=== PATIENT | male | born 1980 | race Caucasian/White ===

== ENCOUNTER → 2017-08-24 | Outpatient (REF) | payer OTHER | LOC: M LAB REF 12:18 | PROVIDERS: ATTEND Nurse Practitioner Family | DX: L81.8 Other specified disorders of pigmentation (principal) ==

== ENCOUNTER → 2020-12-03 | Outpatient (CLI) | payer SELFPAY ==
[~2020-12-03] MED LIST: ACET325C5 PO; MOTR200T44 PO; ONDA4TAB6 PO
== END ==
LOC: M LABSMTC 11:06
PROVIDERS: ATTEND Pediatrics
DX: Z20.822 Contact with and (suspected) exposure to COVID-19 (principal)

== ENCOUNTER 2020-12-12 10:45 | Emergency (ER) | payer OTHER ==
[~2020-12-12] VITALS: Ht 180.3 cm; Wt 150.4 kg
[2020-12-12 10:46] VITALS: BP 145/74
[2020-12-12] MEDS ORDERED: MOTR200T44 PO (10:56)
--- OUTSIDE RECORDS SUMMARY | 2020-12-12 10:56 | CCD | Continuity of Care Document ---
Author Author Nisha SALAMANCA DAIRY BAR MANAGER Organization Unknown Address [address] [facility] [address] [place] [address] Phone [phone] Care Team Providers Care Furniture Finisher Apprentice Name Role Phone Rosemarie Ventura ANP AUTM [phone] Problems Active Problems Provider Date Hypothyroidism JOÃO Newton Onset: 11/27/2020 Vitamin D deficiency Annie Salamanca DAIRY BAR MANAGER Onset: 11/27/2020 Hyperlipidemia Annie Salamanca DAIRY BAR MANAGER Onset: 11/27/2020 Gastroesophageal reflux disease Annie Salamanca DAIRY BAR MANAGER Onset: 0 11/27/2020 Morbid obesity Annie Salamanca DAIRY BAR MANAGER Onset: 11/27/2020 Social History Type Date Description Comments Sex Unknown ETOH Use Drinks 2 Alcoholic Beverages Per Week Tobacco Use Start: Unknown Patient has never smoked Allergies, Adverse Reactions, Alerts Active Allergies Reaction Severity Comments Date Bee Sting Anaphylaxis Age 7 Stung By Several Bees 08/24/2017 Succinylcholine MALIGNANT HYPOTHERMIA Mother Positive Hereditary 08/24/2017 Inactive Allergies NKDA 08/24/2017 Medications Active Medications SIG Qnty Indications Ordering Provide r Date Multivitamins Capsules 1 by mouth every day Rosemarie Ventura FNP 08/24/2017 Medications Administered in Office Medication SIG Qnty Indications Ordering Provider Date Immunization Adminstration,1 Vaccine/Tox oid Injection Rosemarie Ventura FNP 11/09/20 18 Immunizations CPT Code Status Date Vaccine Lot # [id number] Given 11/09/2018 Influenza Virus Vaccine, Quadrivalent (Cciiv4), Derived From 0 Given 08/24/2017 Influenza Vaccin e Quadrivalent Preser/Antibiotic Free Im Use [id number] Vital Signs Date Vital Result Comment 11/27/2020 2:51pm BP Systolic 122 mmHg RT Arm BP Diastolic 76 mmHg RT Arm Heart Rate 80 /min Height 69.75 inches 5'9.75" Weight 335.00 lb BMI (Body Mass Index) 48.4 kg/m2 11/25/2019 2:54pm BP Systolic 130 mmHg BP Diastolic 84 mmHg Height 69.75 inches 5'9.75" Weight 321.00 lb BMI (Body Mass Index) 46.4 kg/m2 Results Test Acquired Date Facility Test Result H/L Range Note Coronavirus 2019 ([facility]) 12/03/2020 [facility] [address], [place] [id number] [phone] Coronavirus 2019 ([facility]) <SEE NOTE> 1 Basic Metabolic Panel 11/27/2020 [facility] haris carvajal Apprentice Electrician: [place] [address] [phone] Glucose 95 mg/dL 74 - 99 2 BUN 17 mg/dL 7 - 18 Creatinine 0.9 mg/dL 0.6 - 1.3 Sodium 138 mEq/L 136 - 145 Potassium 4.1 mEq/L 3.5 - 5.1 Chloride 102 mEq/L 98 - 107 Carbon Dioxide 29 mEq/L 21 - 32 Calcium 9.0 mg/dL 8.5 - 10.1 GFR >= 60 mL/min >60 GFR >= 60 mL/min >60 3 Lipid Profile 11/27/2020 [facility] Apprentice Electrician: [place] [address] [phone] Cholesterol 247 mg/dL High 131 - 200 Triglycerides 196 mg/dL High 30 - 150 HDL Cholesterol 44 mg/dL 35 - 60 LDL (Calculated) 164 CALC High 50 - 159 Laboratory test finding 11/27/2020 [facility] haris gonzales Apprentice Electrician: [place] [address] [phone] Thyroid Stimulating Hormone 1.43 uIU/mL 0.3 6 - 3.74 Laboratory test finding 11/27/2020 [facility] haris gonzales Apprentice Electrician: [place] [address] [phone] Vitamin D 25-Hydroxy 22.2 Low 24.0 - 80.0 4 1 Test: COVID-19 Nasal/Naspharynx Result: NOT DETECTED Reference Units: Not detected Note: Please consider re-collection of a new specimen, if clinically indicated. Note: The COVID-19 assay is under Emergency Use Authorization(EUA) by the U.S. Food and Drug Administration. [facility] is designated as a high complexity laboratory by the Clinical Laboratory Improvement Amendments of 1988(CLIA) and is qualified to perform this test. ASSAY INFORMATION: Real Time RT-PCR 2 100-125 mg/dL PRE-DIABET ES/FASTING >126 mg/dL DIABETES/FASTING 3 CHRONIC KIDNEY DISEASE STAGI NG PER NKF STAGE I & II GFR >= 60 NORMAL TO MILDLY DECREASED STAGE III GFR 30-59 MODERATELY DECREASED STAGE IV GFR 15-29 SEVERELY DECREASED STAGE V GFR <15 VERY LITTLE GFR LEFT ESRD GFR <15 ON BOBBIN PAINTER 4 This test was performed hermann thomas [employer] IP Vitamin D immunoassay kit. Values obtained with different assay methods should not be used interchangeably. Procedures Description No Information Available Medical Devices Description No Information Available Encounters Type Date Location Provider Dx Diagnosis Office Visit 11/27/2020 3:00p [facility] P.CVladimir montoya, DAIRY BAR MANAGER Z00.00 Encntr for general adult medical exam w/ o abnormal findings E03.9 Hypothyroidism, unspecified E55.9 Vitamin D deficiency, unspec ified E78.5 Hyperlipidemia, unspecified K21.9 Gastro-esophageal reflux dis ease without esophagitis E66.01 Morbid (severe) obesity due to excess calories Z68.42 Body mass index [BMI] 45.0-4 9.9, adult Z13.89 Encounter for screening for other disorder Assessments Date Code Description Provider 11/27/2020 Z00.00 Encounter for genera l adult medical examination without abnormal findings VERENA NewtonP 11/27/2020 E03.9 Hypothyroidism, unspecified Honey jerrysandra Salamanca, [facility] 11/27/2020 E55.9 Vitamin D deficiency, unspecifie d Annie Salamanca, [facility] 11/27/2020 E78.5 Hyperlipidemia, unspecified Honeyshayla blackburnsandra Salamanca, [facility] 11/27/2020 K21.9 Gastro-esophageal reflux disease without esophagitis Annie Salamanca, [facility] 11/27/2020 E66.01 Morbid (severe) obesity due to e xcess calories Annie Salamanca, [facility] 11/27/2020 Z68.42 Body mass index [BMI] 45.0-49.9, adult Annie Salamanca, [facility] 11/27/2020 Z13.89 Encounter for screening for othe r disorder JOÃO Newton Plan of Treatment Future Appointment(s):* 12/17/2021 3:00 pm - JOÃO Newton at [facility] 11/27/2020 - JOÃO Newton* Z00.00 Encounter for general adult medical examination without abnormal findings* Comments:* Tentatively schedule 1 yr follow up, although anticipating elevated lipids and will require 3 mo. lab follow up, potentially 6 mo. OC as well. Discussed with pt. who is in agreement. * E03.9 Hypothyroidism, unspecified* Comments:* TSH is pending. No current supplementation at this point. * E55.9 Vitamin D deficiency, unspecified* Comments:* Not currently supplemented; but will check vit d level today. * E78.5 Hyperlipidemia, unspecified* Comments:* Lipids are pending, significantly increased last November but not repeated due to COVID. Dicussed statin therapy should LDL >190, patient is agreeable if necessary. Counseled on indication as well as potential side effects. Chol/Trig dietary guidelines are provided to patient today. Diet and exercise are discussed and reinforced; specifically encouraged low fat and Mediterranean style diet. Weight loss is encouraged. * K21.9 Gastro-esophageal reflux disease without esophagitis* Comments:* Controlled with diet, no current pharmacotherapy. * E66.01 Morbid (severe) obesity due to excess calories* Comments:* Weight loss would be favorable. Implement dietary modifications (low fat, low carb, high fiber, lean proteins, decreasing portion sizes, small frequent high protein snacks, and making substitutions in refined sugars), regular daily exercise of at least 30 minutes three days weekly is encouraged. * Z68.42 Body mass index [BMI] 45.0-49.9, adult * Z13.89 Encounter for screening for other disorder * All * Comments:* Tetanus refused, flu shot refused. EKG 11/28/13. Caffeine 2 per day. Exercise 20-30 minutes per day of cycling. Tentatively scheduled for one year f/u, however discussed may change pending lab results. Encouraged balanced diet, 4-5 servings of fresh fruits and vegetables daily. Recommended at least 30 minutes of exercise daily and eight 8 oz. glasses of water daily.Testicular self exams encouraged monthly.RTC PRN for acute illness.COVID precautions are discussed and social distancing/mask use/ frequent hand washing and sanitizing are encouraged. Functional Status Description No Information Available Mental Status Description No Information Available Referrals Refer to Reason for Referral Status Appt Date Gianluca Waddell M.D. [facility] CONSULT FOR VASECTOMY Patient Notified 01/06/2021 [facility] [address], [place] [address] [phone]
[2020-12-12] MEDS ORDERED: ACET325C5 PO (10:57)
--- OUTSIDE RECORDS SUMMARY | 2020-12-12 10:57 | CCD | Continuity of Care Document ---
Author Author Nisha HART [facility] Organization Unknown Address [address] [facility] [address] [place] [address] Phone [phone] Care Team Providers Care Gasoline Locomotive Crane Operator Name Role Phone Rosemarie Ventura ANP AUTM [phone] Problems Description No Information Available Social History Type Date Description Comments Sex [...] Provider Date Immunization Adminstration,1 Vaccine/Tox oid Injection Rosmearie Ventura FNP 11/09/20 18 Immunizations CPT Code Status Date Vaccine Lot # [id number] Given 11/09/2018 Influenza Virus Vaccine, Quadrivalent (Cciiv4), Derived From 7 Given 08/24/2017 Influenza Vaccin e Quadrivalent Preser/Antibiotic Free Im Use [id number] Vital Signs Date Vital Result Comment 11/27/2020 2:51pm BP Systolic 142 mmHg RT Arm BP Diastolic 90 mmHg RT Arm Heart Rate 80 /min Height 69.75 inches 5'9.75" Weight 335.00 lb BMI (Body Mass Index) 48.4 kg/m2 11/25/2019 2:54pm BP Systolic 130 mmHg BP Diastolic 84 mmHg Height 69.75 inches 5'9.75" Weight 321.00 lb BMI (Body Mass Index) 46.4 kg/m2 Results Test Acquired Date Facility Test Result H/L Range Note Laboratory test finding 11/27/2020 [facility] Swing Grinder: ASHLEIGH Blas [address] [phone] TSH <pending> Laboratory test finding 11/27/2020 [facility] Swing Grinder: ASHLEIGH Blas [address] [phone] Vitamin D 25-Hydroxy <pending> Procedures Description No Information Available Medical Devices Description No Information Available Encounters Description No Information Available Assessments Description No Information Available Plan of Treatment No Information Available Functional Status Description No Information Available Mental Status Description No Information Available Referrals Description No Information Available
--- OUTSIDE RECORDS SUMMARY | 2020-12-12 10:57 | CCD ---
Author Author [facility] Organization [facility] Address Unknown Phone Unavailable Care Team Providers Care Wholesale Manager Name Role Phone Cheikh, Annie LIFE SKILLS WORKER Unavailable Unavailable Cheikh, Annie LIFE SKILLS WORKER Unavailable Unavailable Cheikh, Annie LIFE SKILLS WORKER Unavailable Unavailable Cheikh, Annie LIFE SKILLS WORKER Unavailable Unavailable Cheikh, Annie LIFE SKILLS WORKER Unavailable Unavailable Cheikh, Annie LIFE SKILLS WORKER Unavailable Unavailable Cheikh, Annie LIFE SKILLS WORKER Unavailable Unavailable Cheikh, Annie LIFE SKILLS WORKER Unavailable Unavailable Cheikh, Annie LIFE SKILLS WORKER Unavailable Unavailable Cheikh, Annie LIFE SKILLS WORKER Unavailable Unavailable Cheikh, Annie LIFE SKILLS WORKER Unavailable Unavailable Cheikh, Annie LIFE SKILLS WORKER Unavailable Unavailable Cheikh, Annie LIFE SKILLS WORKER Unavailable Unavailable Cheikh, Annie LIFE SKILLS WORKER Unavailable Unavailable Cheikh, Annie LIFE SKILLS WORKER Unavailable Unavailable Cheikh, Annie LIFE SKILLS WORKER Unavailable Unavailable Cheikh, Annie LIFE SKILLS WORKER Unavailable Unavailable Cheikh, Annie LIFE SKILLS WORKER Unavailable Unavailable Cheikh, Annie LIFE SKILLS WORKER Unavailable Unavailable Cheikh, Annie LIFE SKILLS WORKER Unavailable Unavailable Cheikh, Annie LIFE SKILLS WORKER Unavailable Unavailable Cheikh, Annie LIFE SKILLS WORKER Unavailable Unavailable Cheikh, Annie LIFE SKILLS WORKER Unavailable Unavailable Cheikh, Annie LIFE SKILLS WORKER Unavailable Unavailable Cheikh, Annie LIFE SKILLS WORKER Unavailable Unavailable Cheikh, Annie LIFE SKILLS WORKER Unavailable Unavailable Cheikh, Annie LIFE SKILLS WORKER Unavailable Unavailable Re-disclosure Warning The records that you are about to access may contain information from federally-assisted alcohol or drug abuse programs. If such information is present, then the following federally mandated warning applies: This information has been disclosed to you from records protected by federal confidentiality rules (42 CFR part 2). The federal rules prohibit you from making any further disclosure of this information unless further disclosure is expressly permitted by the written consent of the person to whom it pertains or as otherwise permitted by 42 CFR part 2. A general authorization for the release of medical or other information is NOT sufficient for this purpose. The Federal rules restrict any use of the information to criminally investigate or prosecute any alcohol or drug abuse patient.The records that you are about to access may contain highly sensitive health information, the redisclosure of which is protected by Article 27-F of the [facility] Public Health law. If you continue you may have access to information: Regarding HIV / AIDS; Provided by facilities licensed or operated by the [facility] Office of Mental Health; or Provided by the [facility] Office for People With Developmental Disabilities. If such information is present, then the following [facility] mandated warning applies: This information has been disclosed to you from confidential records which are protected by state law. State law prohibits you from making any further disclosure of this information without the specific written consent of the person to whom it pertains, or as otherwise permitted by law. Any unauthorized further disclosure in violation of state law may result in a fine or usp sentence or both. A general authorization for the release of medical or other information is NOT sufficient authorization for further disc losure. Family History Family Member Name Family Member Gender Family Member Status Date o f Status Description Data Source(s) Unknown Male Problem [facility] ([facility]) Encounters Encounter Providers Location Date Indications Data Source(s ) Outpatient Attender: Annie Duncan 02:00:00 PM EST [facility] ([facility] ) Medications Medication Brand Name Start Date Product Form Dose Route Admi nistrative Instructions Pharmacy Instructions Status Indications Reaction Description Data Source(s) 60 mcg (15 mcg x 4)/0.5 mL 08/17/2020 12:00:00 AM EDT syring e 0 INJECT DIRECTED INJECT DIRECTED SOLD: 08/17/2020 [employer] . UNIT 08/17/2020 12:00:00 AM EDT Injectable 1 DIRECTED DIRECTED SOLD: 08/17/2020 [facility] Insurance Providers Payer name Policy type / Coverage type Policy ID Covered democrat ID Covered democrat's relationship to trivedi Policy Trivedi Plan Information [employer]OM[employer] [id number] SELF PAY ONLY [id number] SP [id number] [employer]/Umr (Old) Medigap Part B [id number] Family Dependent [id number] Umr (New [place]) Commercial [id number] Family Dependent [id number] [employer] (Old) Medigap Part B [id number] Family Dependent [id number] Umr [place] Ppo Commercial [id number] Family Dependent [id number] [employer] Ppo Commercial [id number] Family Dependent [id number] POMCO U [id number] Spouse [id number] POMCO U [id number] Spouse [id number] POMCO U [id number] Spouse [id number] POMCO O [id number] U [id number] SELFPAY 5 UNAVAILABLE 1 UNAVAILA BLE [employer]OMCO 2 [id number] 2 [id number] Problems, Conditions, and Diagnoses Code Display Name Description Problem Type Effective Dates Data Source(s) 703789910 Morbid obesity Morbid obesity Problem 11/27/2020 12:00: 00 AM EST [facility] ([facility]) [id number] Gastroesophageal reflux disease Gastroesophageal reflux disease Problem 11/27/2020 12:00:00 AM EST [facility] ([facility]) [id number] Hyperlipidemia Hyperlipidemia Problem 11/27/2020 12:00: 00 AM EST [facility] ([facility]) [id number] Vitamin D deficiency Vitamin D deficiency Problem 11/27/2020 12:00:00 AM EST [facility] ([facility]) [id number] Hypothyroidism Hypothyroidism Problem 11/27/2020 12:00: 00 AM EST [facility] ([facility]) Results ID Date Data Source [id number] 12/04/2020 12:00:00 AM EST [facility] Name Value Range Interpretation Code Description Data Indira rce(s) Supporting Document(s) SARS-CoV-2 (COVID-19) RNA [Presence] in Respiratory specimen by SHEBA with probe detection Not Detected [facility] This lab was ordered by [facility] and reported by [employer] ID Date Data Source [id number] 12/03/2020 11:00:00 AM EST [facility] Name Value Range Interpretation Code Description Data Indira rce(s) Supporting Document(s) Laboratory test finding (navigational concept) Laboratory test result [facility] ([facility]) Test: COVID-19 Nasal/Naspharynx Result: NOT DETECTED Reference Units: Not detected Note: Please consider re-collection of a new specimen, if clinically indicated. Note: The COVID-19 assay is under Emergency Use Authorization(EUA) by the U.S. Food and Drug Administration. [facility] is designated as a high complexity laboratory by the Clinical Laboratory Improvement Amendments of 1988(CLIA) and is qualified to perform this test. ASSAY INFORMATION: Real Time RT-PCR ID Date Data Source [id number] 11/27/2020 02:47:00 PM EST [facility] Name Value Range Interpretation Code Description Data Indira rce(s) Supporting Document(s) Calcidiol [Mass/volume] in Serum or Plasma 22.2 24.0-80.0 [facility] This test was performed using [employer] P Vitamin D immunoassay kit. Values obtained with different assay methods should not be used interchangeably. ID Date Data Source [id number] 11/27/2020 02:47:00 PM EST [facility] Name Value Range Interpretation Code Description Data Indira rce(s) Supporting Document(s) Thyrotropin [Units/volume] in Serum or Plasma by Detec tion limit <= 0.05 mIU/L 1.43 uIU/mL 0.36-3.74 [facility] ([facility] ) ID Date Data Source [id number] 11/27/2020 02:47:00 PM EST [facility] ([facility]) Name Value Range Interpretation Code Description Data Indira rce(s) Supporting Document(s) Triglyceride [Mass/volume] in Serum or Plasma 196 mg/dL 30-150 [facility] ([facility]) Cholesterol [Mass/volume] in Serum or Plasma 247 mg/dL 131-200 [facility] ([facility]) Cholesterol in LDL [Mass/volume] in Serum or Plasma by calcu lation 164 CALC 50-159 [facility] ([facility]) Cholesterol in HDL [Mass/volume] in Serum or Plasma 44 mg/dL 35-60 [facility] ([facility]) ID Date Data Source [id number] 11/27/2020 02:47:00 PM EST [facility] ([facility]) Name Value Range Interpretation Code Description Data Indira rce(s) Supporting Document(s) Glucose [Mass/volume] in Serum or Plasma 95 mg/dL 74-99 [facility] ([facility]) 100-125 mg/dL PRE-DIABETES/FASTING >126 mg/dL DIABETES/FASTING Sodium [Moles/volume] in Serum or Plasma 138 meq/L 136-145 [facility] ([facility]) Urea nitrogen [Mass/volume] in Serum or Plasma 17 mg/dL 7-18 [facility] ([facility]) Creatinine 0.9 mg/dL 0.6-1.3 [facility] Chloride [Moles/volume] in Serum or Plasma 102 meq/L 98-107 [facility] ([facility]) Potassium [Moles/volume] in Serum or Plasma 4.1 meq/L 3.5-5.1 [facility] ([facility]) Calcium [Mass/volume] in Serum or Plasma 9.0 mg/dL 8.5-10.1 [facility] ([facility]) Carbon dioxide, total [Moles/volume] in Serum or Plasma 29 meq/L 21 -32 [facility] ([facility]) Glomerular filtration rate/1.73 sq M pre dicted among non-blacks [Volume Rate/Area] in Serum or Plasma by Creatinine-based formula (MDRD) Laboratory test result [facility] ([facility] ) Glomerular filtration rate/1.73 sq M pre dicted among blacks [Volume Rate/Area] in Serum or Plasma by Creatinine-based formula (MDRD) Laboratory [facility] <content>CHRONIC KIDNEY DISEASE STAGING PER NKF</content>
<content></content>
<content>STAGE I & II GFR >= 60 NORMAL TO MILDLY DECREASED</content>
<content>STAGE III GFR 30-59 MODERATELY DECREASED</content>
<content>STAGE IV GFR 15-29 SEVERELY DECREASED</content>
<content>STAGE V GFR <15 VERY LITTLE GFR LEFT</content>
<content>ESRD GFR <15 ON DAMAGE PREVENTION COORDINATOR</content>
<content></content> ID Date Data Source [id number] 11/26/2019 08:44:00 AM EST [facility] ([facility]) Name Value Range Interpretation Code Description Data Indira rce(s) Supporting Document(s) Calcidiol [Mass/volume] in Serum or Plasma <pending> [facility]) ID Date Data Source [id number] 11/26/2019 08:44:00 AM EST [facility] ([facility]) Name Value Range Interpretation Code Description Data Indira rce(s) Supporting Document(s) Thyrotropin [Units/volume] in Serum or Plasma by Detec tion limit <= 0.05 mIU/L 1.54 uIU/mL 0.36-3.74 [facility] ID Date Data Source [id number] 11/26/2019 08:44:00 AM EST [facility] ([facility]) Name Value Range Interpretation Code Description Data Indira rce(s) Supporting Document(s) Cholesterol [Mass/volume] in Serum or Plasma 257 mg/dL 131-200 [facility] ([facility]) Cholesterol in LDL [Mass/volume] in Serum or Plasma by calcu lation 199 CALC 50-159 [facility] ([facility]) Triglyceride [Mass/volume] in Serum or Plasma 123 mg/dL 30-150 [facility] ([facility]) Cholesterol in HDL [Mass/volume] in Serum or Plasma 33 mg/dL 35-60 [facility] ([facility]) ID Date Data Source [id number] 11/26/2019 08:44:00 AM EST [facility] ([facility]) Name Value Range Interpretation Code Description Data Indira rce(s) Supporting Document(s) Glucose [Mass/volume] in Serum or Plasma 107 mg/dL 74-99 [facility] ([facility]) 100-125 mg/dL PRE-DIABETES/FASTING >126 mg/dL DIABETES/FASTING Urea nitrogen [Mass/volume] in Serum or Plasma 13 mg/dL 7-18 [facility] ([facility]) Creatinine 1.1 mg/dL 0.6-1.3 [facility] Chloride [Moles/volume] in Serum or Plasma 100 meq/L 98-107 [facility] ([facility]) Potassium [Moles/volume] in Serum or Plasma 4.5 meq/L 3.5-5.1 [facility] ([facility]) Sodium [Moles/volume] in Serum or Plasma 138 meq/L 136-145 [facility] ([facility]) Carbon dioxide, total [Moles/volume] in Serum or Plasma 25 meq/L 21 -32 [facility] ([facility]) Calcium [Mass/volume] in Serum or Plasma 9.2 mg/dL 8.5-10.1 [facility] ([facility]) Glomerular filtration rate/1.73 sq M pre dicted among non-blacks [Volume Rate/Area] in Serum or Plasma by Creatinine-based formula (MDRD) >= 60 mL/min [facility] ([facility]) Glomerular filtration rate/1.73 sq M pre dicted among blacks [Volume Rate/Area] in Serum or Plasma by Creatinine-based formula (MDRD) >= 60 mL/min [facility] ([facility]) <content>CHRONIC KIDNEY DISEASE STAGING PER NKF</content>
<content></content>
<content>STAGE I & II GFR >= 60 NORMAL TO MILDLY DECREASED</content>
<content>STAGE III GFR 30-59 MODERATELY DECREASED</content>
<content>STAGE IV GFR 15-29 SEVERELY DECREASED</content>
<content>STAGE V GFR <15 VERY LITTLE GFR LEFT</content>
<content>ESRD GFR <15 ON DAMAGE PREVENTION COORDINATOR</content>
<content></content> ID Date Data Source [id number] 11/26/2019 08:44:00 AM EST [facility] ([facility]) Name Value Range Interpretation Code Description Data Indira rce(s) Supporting Document(s) Erythrocytes [#/volume] in Blood by Automated count 5.42 x10*6/UL 4.2 0-6.30 [facility] ([facility]) Leukocytes [#/volume] in Blood by Automated count 6.6 x10*3/UL 4.1-10 .9 [facility] ([facility]) Hemoglobin [Mass/volume] in Blood 15.6 g/dL 12.0-18.0 [facility] ([facility]) Hematocrit [Volume Fraction] of Blood by Automated count 46.1 % 3 7.0-51.0 [facility] ([facility]) MCHC 34.0 g/dL 31.0-38.0 [facility] MCV 84.9 fL 80.0-97.0 [facility] MCH 28.8 pg 26.0-32.0 [facility] [facility]) Erythrocyte distribution width [Ratio] by Automated count 12.4 % 11.6-13.7 [facility] ([facility]) Platelets [#/volume] in Blood by Automated count 227 x10*3/UL 140-440 [facility] ([facility]) Lymph % 31.4 % 10.0-58.5 [facility] [facility]) Mid % 8.1 % 1.7-9.3 [facility]) MPV 8.0 FL 7.8-11.0 [facility] Neut % 60.5 % 37.0-92.0 [facility] Mid # 0.6 x10*3/UL 0.1-0.6 [facility] ([facility]) Lymph # 2.0 x10*3/UL 0.6-4.1 [facility] ([facility]) Neut # 4.0 x10*3/UL 2.0-7.8 [facility] ([facility]) Procedure Vital Signs ID Date Data Source UNK Name Value Range Interpretation Code Description Data Source(s) Body mass index (BMI) [Ratio] 48.4 kg/m2 48.4 k g/m2 [facility] ([facility]) Body weight 335.00 [lb_av] 335.00 [lb_av] [facility] ([facility]) Body height 69.75 [in_i] 69.75 [in_i] [facility] ([facility]) 5'9.75" Heart rate 80 /min 80 /min [facility] ([facility]) Diastolic blood pressure 76 mm[Hg] 76 mm[Hg] [facility] ([facility]) RT Arm Systolic blood pressure 122 mm[Hg] 122 mm[Hg] [facility] ([facility]) RT Arm Body mass index (BMI) [Ratio] 46.4 kg/m2 46.4 k g/m2 [facility] ([facility]) Body weight 321.00 [lb_av] 321.00 [lb_av] [facility] ([facility]) Body height 69.75 [in_i] 69.75 [in_i] [facility] ([facility]) 5'9.75" Diastolic blood pressure 84 mm[Hg] 84 mm[Hg] [facility] ([facility]) Systolic blood pressure 130 mm[Hg] 130 mm[Hg] [facility]
--- OUTSIDE RECORDS SUMMARY | 2020-12-12 10:57 | CCD | Continuity of Care Document ---
Author Author Nisha SALAMANCA [employer]TER AWAY Organization Unknown Address [address] [facility] [address] [place] [address] Phone [phone] Care Team Providers Care Loans Consultant Name Role Phone Rosemarie Ventura ANP AUTM [phone] Problems Active Problems Provider Date Hypothyroidism JOÃO Newton Onset: 11/27/2020 Vitamin D deficiency Annie Salamanca [employer] Onset: 11/27/2020 Hyperlipidemia Anine Salamanca [employer] Onset: 11/27/2020 Gastroesophageal reflux disease Annie Salamanca [employer] Onset: 0 11/27/2020 Morbid obesity Annie Salamanca [employer] Onset: 11/27/2020 Social History Type Date Description [...] CPT Code Status Date Vaccine Lot # [id number] Given 11/09/2018 Influenza Virus Vaccine, Quadrivalent (Cciiv4), Derived From 8 Given 08/24/2017 Influenza Vaccin e Quadrivalent Preser/Antibiotic Free Im Use [id number] Vital Signs Date Vital Result Comment 11/27/2020 [...] Date Facility Test Result H/L Range Note Basic Metabolic Panel 11/27/2020 [facility] Maintenance Mechanic Engine: [place] [id number] [phone] Glucose 95 mg/dL 74 - 99 1 BUN 17 mg/dL 7 - 18 Creatinine 0.9 mg/dL 0.6 - 1.3 Sodium 138 mEq/L 136 - 145 Potassium 4.1 mEq/L 3.5 - 5.1 Chloride 102 mEq/L 98 - 107 Carbon Dioxide 29 mEq/L 21 - 32 Calcium 9.0 mg/dL 8.5 - 10.1 GFR >= 60 mL/min >60 GFR >= 60 mL/min >60 2 Lipid Profile 11/27/2020 [facility] Maintenance Mechanic Engine: ASHLE[place] Blas [id number] [phone] Cholesterol 247 mg/dL High 131 - 200 Triglycerides 196 mg/dL High 30 - 150 HDL Cholesterol 44 mg/dL 35 - 60 LDL (Calculated) 164 CALC High 50 - 159 Laboratory test finding 11/27/2020 [facility] Maintenance Mechanic Engine: [place] Bl[place] [id number] [phone] Thyroid Stimulating Hormone 1.43 uIU/mL 0.3 6 - 3.74 Laboratory test finding 11/27/2020 [facility] Maintenance Mechanic Engine: [place] Bl[place] [address] [phone] Vitamin D 25-Hydroxy 22.2 Low 24.0 - 80.0 3 1 100-125 mg/dL PRE-DIABET ES/FASTING >126 mg/dL DIABETES/FASTING 2 CHRONIC KIDNEY DISEASE STAGI NG PER NKF STAGE I & II GFR >= 60 NORMAL TO MILDLY DECREASED STAGE III GFR 30-59 MODERATELY DECREASED STAGE IV GFR 15-29 SEVERELY DECREASED STAGE V GFR <15 VERY LITTLE GFR LEFT ESRD GFR <15 ON BILINGUAL OFFICE ASSISTANT 3 This test was performed [employer] Vitamin D immunoassay kit. Values obtained with different assay methods should not be used interchangeably. Procedures Description No Information Available Medical Devices Description No Information Available Encounters Type Date Location Provider Dx Diagnosis Office Visit 11/27/2020 3:00p [facility] VERENA AlcantarP Z00.00 Encntr for general adult medical exam [...] l adult medical examination without abnormal findings Annie Salamanca, [facility] 11/27/2020 E03.9 Hypothyroidism, unspecified Honey jerrysandra Salamanca, [facility] 11/27/2020 E55.9 Vitamin D deficiency, unspecifie d Annie Salamanca, [facility] 11/27/2020 E78.5 Hyperlipidemia, unspecified Honey jerry Cheikh, [facility] 11/27/2020 K21.9 Gastro-esophageal reflux disease without esophagitis Annie Salamanca, [facility] 11/27/2020 E66.01 Morbid (severe) obesity due to e xcess calories Annie Salamanca, [facility] 11/27/2020 Z68.42 Body mass index [BMI] 45.0-49.9, adult Annie Salamanca [facility] 11/27/2020 Z13.89 Encounter for screening for othe r disorder JOÃO Newton Plan of Treatment Future Appointment(s):* 12/17/2021 3:00 pm - JOÃO Newton at [facility] 11/27/2020 - JOÃO Newton* Z00.00 Encounter [...] Referral Status Appt Date Gianluca Waddell M.D. PARKER CONSULT FOR [facility]CTOMY [facility] [place] [address], [place] [address] [phone]
--- OUTSIDE RECORDS SUMMARY | 2020-12-12 10:57 | CCD | Continuity of Care Document ---
Author Author Nisha SALAMANCA INTELLIGENT SYSTEMS ENGINEER Organization Unknown Address [address] [facility] [address] [place] [address] Phone [phone] Care Team Providers Care Weekend Caregiver Name Role Phone Rosemarie Ventura ANP AUTM [phone] Problems Active Problems Provider Date Hypothyroidism JOÃO Newton Onset: 11/27/2020 Vitamin D deficiency Annie Salamanca INTELLIGENT SYSTEMS ENGINEER Onset: 11/27/2020 Hyperlipidemia Annie Salamanca INTELLIGENT SYSTEMS ENGINEER Onset: 11/27/2020 Gastroesophageal reflux disease Annie Salamanca INTELLIGENT SYSTEMS ENGINEER Onset: 0 11/27/2020 Morbid obesity Annie Salamanca INTELLIGENT SYSTEMS ENGINEER Onset: 11/27/2020 Social History Type Date Description [...] CPT Code Status Date Vaccine Lot # [id number] Given 11/09/2018 Influenza Virus Vaccine, Quadrivalent (Cciiv4), Derived From 0 Given 08/24/2017 Influenza Vaccin e Quadrivalent Preser/Antibiotic Free Im Use [id number] Vital Signs Date Vital Result Comment 11/27/2020 [...] H/L Range Note Basic Metabolic Panel 11/27/2020 [facility] Cat Sitter: [place] [id number] [phone] Glucose 95 mg/dL 74 - 99 1 [...] 60 mL/min >60 2 Lipid Profile 11/27/2020 [facility] Cat Sitter: [place]SHLE[place] Blas [id number] [phone] Cholesterol 247 mg/dL High 131 - 200 Triglycerides 196 mg/dL High 30 - 150 HDL Cholesterol 44 mg/dL 35 - 60 LDL (Calculated) 164 CALC High 50 - 159 Laboratory test finding 11/27/2020 [facility] Cat Sitter: [place]LE[place] Bl[place] [address] [phone] Thyroid Stimulating Hormone 1.43 uIU/mL 0.3 6 - 3.74 Laboratory test finding 11/27/2020 [facility] Cat Sitter: [place]LE[place] lBas [address] [phone] Vitamin D 25-Hydroxy 22.2 Low 24.0 - 80.0 3 1 100-125 mg/dL PRE-DIABET ES/FASTING >126 mg/dL DIABETES/FASTING 2 CHRONIC KIDNEY DISEASE STAGI NG PER NKF STAGE I & II GFR >= 60 NORMAL TO MILDLY DECREASED STAGE III GFR 30-59 MODERATELY DECREASED STAGE IV GFR 15-29 SEVERELY DECREASED STAGE V GFR <15 VERY LITTLE GFR LEFT ESRD GFR <15 ON OUTSIDE SALESMAN 3 This test was performed [employer] Vitamin D immunoassay kit. Values obtained with different assay methods should not be used interchangeably. Procedures Description No Information Available Medical Devices Description No Information Available Encounters Description No Information Available Assessments Date Code Description Provider 11/27/2020 Z00.00 Encounter for genera l adult medical examination without abnormal findings VERENA NewtonP 11/27/2020 E03.9 Hypothyroidism, unspecified Honey Salamanca, [facility] 11/27/2020 E55.9 Vitamin D deficiency, unspecifie d Annie Salamanca, [facility] 11/27/2020 E78.5 Hyperlipidemia, unspecified Honey Salamanca, [facility] 11/27/2020 K21.9 Gastro-esophageal reflux disease without esophagitis Annie Salamanca [facility] 11/27/2020 E66.01 Morbid (severe) obesity due to e xcess calories Annie Salamanca [facility] 11/27/2020 Z68.42 Body mass index [BMI] 45.0-49.9, adult JOÃO Newton Plan of Treatment Future Appointment(s):* 12/17/2021 3:00 pm - JOÃO Newton at [facility] 11/27/2020 - JOÃO Newton* Z00.00 [...] Body mass index [BMI] 45.0-49.9, adult * All * Comments:* Tetanus refused, flu [...] Description No Information Available Referrals Refer to Dr Reason for Referral Status Appt Date Gianluca Waddell M.D. STABLE MANAGER CONSULT FOR VASECTOMY [facility] [address] , [facility] [place] [address] [phone]
--- OUTSIDE RECORDS SUMMARY | 2020-12-12 10:57 | CCD | Continuity of Care Document ---
Author Author Nisha SALAMANCA WEBFOCUS DEVELOPER Organization Unknown Address [address] [facility] [address] [place] [address] Phone [phone] Care Team Providers Care Grain Loader Name Role Phone Rosemarie Ventura ANP AUTM [phone] Problems Active Problems Provider Date Hypothyroidism JOÃO Newton Onset: 11/27/2020 Vitamin D deficiency Annie Salamanca WEBFOCUS DEVELOPER Onset: 11/27/2020 Hyperlipidemia Annie Salamanca WEBFOCUS DEVELOPER Onset: 11/27/2020 Gastroesophageal reflux disease Annie Salamanca WEBFOCUS DEVELOPER Onset: 0 11/27/2020 Morbid obesity Annie Salamanca [employer]BFOCUS DEVELOPER Onset: 11/27/2020 Social History Type Date Description [...] CPT Code Status Date Vaccine Lot # [id number] Given 11/09/2018 Influenza Virus Vaccine, Quadrivalent ([id number]), Derived From 8 Given 08/24/2017 Influenza Vaccin e Quadrivalent Preser/Antibiotic Free Im Use [id number] Vital Signs Date Vital Result Comment 11/27/2020 [...] H/L Range Note Basic Metabolic Panel 11/27/2020 [facility] Figure Refinisher And Repairer: ASHLEIGH Blas [address] [phone] Glucose 95 mg/dL 74 - 99 1 [...] 60 mL/min >60 2 Lipid Profile 11/27/2020 [facility] Figure Refinisher And Repairer: ASHLEIGH Blas [address] [phone] Cholesterol 247 mg/dL High 131 - 200 Triglycerides 196 mg/dL High 30 - 150 HDL Cholesterol 44 mg/dL 35 - 60 LDL (Calculated) 164 CALC High 50 - 159 Laboratory test finding 11/27/2020 [facility] Figure Refinisher And Repairer: ASHLEIGH Blas [address] [phone] Thyroid Stimulating Hormone 1.43 uIU/mL 0.3 6 - 3.74 Laboratory test finding 11/27/2020 [facility] Figure Refinisher And Repairer: ASHLEIGH Blas [address] [phone] Vitamin D 25-Hydroxy <pending> 1 100-125 mg/dL PRE-DIABET ES/FASTING >126 mg/dL DIABETES/FASTING 2 CHRONIC KIDNEY DISEASE STAGI NG PER NKF STAGE I & II GFR >= 60 NORMAL TO MILDLY DECREASED STAGE III GFR 30-59 MODERATELY DECREASED STAGE IV GFR 15-29 SEVERELY DECREASED STAGE V GFR <15 VERY LITTLE GFR LEFT ESRD GFR <15 ON INSTRUCTOR OF NURSING Procedures Description No Information Available Medical Devices Description No Information Available Encounters Description No Information Available Assessments Date Code Description Provider 11/27/2020 Z00.00 Encounter for genera l adult medical examination without abnormal findings JOÃO Newton 11/27/2020 E03.9 Hypothyroidism, unspecified Honey Salamanca, [facility] 11/27/2020 E55.9 Vitamin D deficiency, unspecifie d Annie Salamanca, [facility] 11/27/2020 E78.5 Hyperlipidemia, unspecified Honey Salamanca, [facility] 11/27/2020 K21.9 Gastro-esophageal reflux disease without esophagitis Annie Salamanca [facility] 11/27/2020 E66.01 Morbid (severe) obesity due to e xcess calories Annie Salamanca, [facility] 11/27/2020 Z68.42 Body mass index [BMI] 45.0-49.9, adult JOÃO Newton Plan of Treatment Future Appointment(s):* 12/17/2021 3:00 pm - JOÃO Newton at [facility] 11/27/2020 - JOÃO Newton* Z00.00 [...]
--- OUTSIDE RECORDS SUMMARY | 2020-12-12 11:30 | CCD ---
Author Author [facility] Organization [facility] Address Unknown Phone Unavailable Care Team Providers Care Field Representatives Director Name Role Phone Cheikh, Annie NURSES AIDE Unavailable Unavailable Cheikh, Annie NURSES AIDE Unavailable Unavailable Cheikh, Annie NURSES AIDE Unavailable Unavailable Cheikh, Annie NURSES AIDE Unavailable Unavailable Cheikh, Annie NURSES AIDE Unavailable Unavailable Cheikh, Annie NURSES AIDE Unavailable Unavailable Cheikh, Annie NURSES AIDE Unavailable Unavailable Cheikh, Annie NURSES AIDE Unavailable Unavailable Cheikh, Annie NURSES AIDE Unavailable Unavailable Cheikh, Annie NURSES AIDE Unavailable Unavailable Cheikh, Annie NURSES AIDE Unavailable Unavailable Cheikh, Annie NURSES AIDE Unavailable Unavailable Cheikh, Annie NURSES AIDE Unavailable Unavailable Cheikh, Annie NURSES AIDE Unavailable Unavailable Cheikh, Annie NURSES AIDE Unavailable Unavailable Cheikh, Annie NURSES AIDE Unavailable Unavailable Cheikh, Annie NURSES AIDE Unavailable Unavailable Cheikh, Annie NURSES AIDE Unavailable Unavailable Cheikh, Annie NURSES AIDE Unavailable Unavailable Cheikh, Annie NURSES AIDE Unavailable Unavailable Cheikh, Annie NURSES AIDE Unavailable Unavailable Cheikh, Annie NURSES AIDE Unavailable Unavailable Cheikh, Annie NURSES AIDE Unavailable Unavailable Cheikh, Annie NURSES AIDE Unavailable Unavailable Cheikh, Annie NURSES AIDE Unavailable Unavailable Cheikh, Annie NURSES AIDE Unavailable Unavailable Cheikh, Annie NURSES AIDE Unavailable Unavailable Re-disclosure Warning The records that [...] is protected by Article 27-F of the [facility] Public Health law. If you continue you may have access to information: Regarding HIV / AIDS; Provided by facilities licensed or operated by the [facility] Office of Mental Health; or Provided by the [facility] Office for People With Developmental Disabilities. If such information is present, then the following [facility] mandated warning applies: This information has [...] law may result in a fine or detention sentence or both. A general authorization for the release of medical or other information is NOT sufficient authorization for further disc losure. Family History Family Member Name Family Member Gender Family Member Status Date o f Status Description Data Source(s) Unknown Male Problem [facility] ([facility]) Encounters Encounter Providers Location Date Indications Data Source(s ) Outpatient Attender: Annie Duncan 02:00:00 PM EST [facility] ([facility] ) Medications Medication Brand Name Start Date Product Form Dose Route Admi nistrative Instructions Pharmacy Instructions Status Indications Reaction Description Data Source(s) 60 mcg (15 mcg x 4)/0.5 mL 08/17/2020 12:00:00 AM EDT syring e 0 INJECT DIRECTED INJECT DIRECTED SOLD: 08/17/2020 [facility] . UNIT 08/17/2020 12:00:00 AM EDT Injectable 1 DIRECTED DIRECTED SOLD: 08/17/2020 [facility] Insurance Providers Payer name Policy type / Coverage type Policy ID Covered alliance party ID Covered alliance party's relationship to trivedi Policy Trivedi Plan Information [facility] [id number] WI2 [id number] POMCO [id number] [place]2 [id number] SELF PAY ONLY [id number] SP [id number] [place]/Umr (Old) Medigap Part B [id number] Family Dependent [id number] Umr (New [place]) Commercial [id number] Family Dependent [id number] [place]Umr (Old) Medigap Part B [id number] Family Dependent [id number] Umr [place] Ppo Commercial [id number] Family Dependent [id number] [place] Ppo Commercial [id number] Family Dependent [id number] POMCO U [id number] Spouse [id number] POMCO U [id number] Spouse [id number] POMCO U [id number] Spouse [id number] POMCO O [id number] U [id number] SELFPAY 5 UNAVAILABLE 1 UNAVAILA BLE POMCO 2 [id number] 2 [id number] Problems, Conditions, and Diagnoses Code Display Name Description Problem Type Effective Dates Data Source(s) 390558607 Morbid obesity Morbid obesity Problem 11/27/2020 12:00: 00 AM EST [facility] ([facility]) [id number] Gastroesophageal reflux disease Gastroesophageal reflux disease Problem 11/27/2020 12:00:00 AM EST [facility] ([facility]) [id number] Hyperlipidemia Hyperlipidemia Problem 11/27/2020 12:00: 00 AM EST [facility] ([facility]) [id number] Vitamin D deficiency Vitamin D deficiency Problem 11/27/2020 12:00:00 AM EST [facility] ([facility]) [id number] Hypothyroidism Hypothyroidism Problem 11/27/2020 12:00: 00 AM EST [facility] ([facility]) Results ID Date Data Source [id number] 12/04/2020 12:00:00 AM EST [facility] Name Value Range Interpretation Code Description Data Indira rce(s) Supporting Document(s) SARS-CoV-2 (COVID-19) RNA [Presence] in Respiratory specimen by SHEBA with probe detection Not Detected [facility] This lab was ordered by [facility] and reported by [employer] ID Date Data Source [id number] 12/03/2020 11:00:00 AM EST [facility] Name Value Range Interpretation Code Description Data Indira rce(s) Supporting Document(s) Laboratory test finding (navigational concept) Laboratory test result [facility] ([facility]) Test: COVID-19 Nasal/Naspharynx Result: NOT DETECTED Reference Units: Not detected Note: Please consider re-collection of a new specimen, if clinically indicated. Note: The COVID-19 assay is under Emergency Use Authorization(EUA) by the U.S. Food and Drug Administration. [employer] is designated as a high complexity laboratory by the Clinical Laboratory Improvement Amendments of 1988(CLIA) and is qualified to perform this test. ASSAY INFORMATION: Real Time RT-PCR ID Date Data Source [id number] 11/27/2020 02:47:00 PM EST [facility] ([facility]) Name Value Range Interpretation Code Description Data Nidira rce(s) Supporting Document(s) Calcidiol [Mass/volume] in Serum or Plasma 22.2 24.0-80.0 [facility] ([facility]) This test was performed using [employer] I P Vitamin D immunoassay kit. Values obtained with different assay methods should not be used interchangeably. ID Date Data Source [id number] 11/27/2020 02:47:00 PM EST [facility] Name Value Range Interpretation Code Description Data Indira rce(s) Supporting Document(s) Thyrotropin [Units/volume] in Serum or Plasma by Detec tion limit <= 0.05 mIU/L 1.43 uIU/mL 0.36-3.74 [facility] ([facility] ) ID Date Data Source [id number] 11/27/2020 02:47:00 PM EST [facility] ([facility]) Name Value Range Interpretation Code Description Data Indira rce(s) Supporting Document(s) Triglyceride [Mass/volume] in Serum or Plasma 196 mg/dL 30-150 [facility] ([facility]) Cholesterol [Mass/volume] in Serum or Plasma 247 mg/dL 131-200 [facility] ([facility]) Cholesterol in LDL [Mass/volume] in Serum or Plasma by calcu lation 164 CALC 50-159 [facility] ([facility]) Cholesterol in HDL [Mass/volume] in Serum or Plasma 44 mg/dL 35-60 [facility] ([facility]) ID Date Data Source [id number] 11/27/2020 02:47:00 PM EST [facility] Name Value Range Interpretation Code Description Data Indira rce(s) Supporting Document(s) Glucose [Mass/volume] in Serum or Plasma 95 mg/dL 74-99 [facility] ([facility]) 100-125 mg/dL PRE-DIABETES/FASTING >126 mg/dL DIABETES/FASTING Sodium [Moles/volume] in Serum or Plasma 138 meq/L 136-145 [facility] ([facility]) Urea nitrogen [Mass/volume] in Serum or Plasma 17 mg/dL 7-18 [facility] ([facility]) Creatinine 0.9 mg/dL 0.6-1.3 [facility] Chloride [Moles/volume] in Serum or Plasma 102 meq/L 98-107 [facility] ([facility]) Potassium [Moles/volume] in Serum or Plasma 4.1 meq/L 3.5-5.1 [facility] ([facility]) Calcium [Mass/volume] in Serum or Plasma 9.0 mg/dL 8.5-10.1 [facility] ([facility]) Carbon dioxide, total [Moles/volume] in Serum or Plasma 29 meq/L 21 -32 [facility] ([facility]) Glomerular filtration rate/1.73 sq M pre dicted among non-blacks [Volume Rate/Area] in Serum or Plasma by Creatinine-based formula (MDRD) Laboratory test result [facility] Glomerular filtration rate/1.73 sq M pre dicted among blacks [Volume Rate/Area] in Serum or Plasma by Creatinine-based formula (MDRD) Laboratory test result [facility] <content>CHRONIC KIDNEY DISEASE STAGING PER NKF</content>
<content></content>
<content>STAGE I & II GFR >= 60 NORMAL TO MILDLY DECREASED</content>
<content>STAGE III GFR 30-59 MODERATELY DECREASED</content>
<content>STAGE IV GFR 15-29 SEVERELY DECREASED</content>
<content>STAGE V GFR <15 VERY LITTLE GFR LEFT</content>
<content>ESRD GFR <15 ON CLINICAL SCIENCE LIAISON</content>
<content></content> ID Date Data Source [id number] 11/26/2019 08:44:00 AM EST [facility] ([facility]) Name Value Range Interpretation Code Description Data Indira rce(s) Supporting Document(s) Calcidiol [Mass/volume] in Serum or Plasma <pending> [facility] ID Date Data Source [id number] 11/26/2019 08:44:00 AM EST [facility] ([facility]) Name Value Range Interpretation Code Description Data Indira rce(s) Supporting Document(s) Thyrotropin [Units/volume] in Serum or Plasma by Detec tion limit <= 0.05 mIU/L 1.54 uIU/mL 0.36-3.74 [facility] ID Date Data Source [id number] 11/26/2019 08:44:00 AM EST [facility] Name Value Range Interpretation Code Description Data Indira rce(s) Supporting Document(s) Cholesterol [Mass/volume] in Serum or Plasma 257 mg/dL 131-200 [facility] ([facility]) Cholesterol in LDL [Mass/volume] in Serum or Plasma by calcu lation 199 CALC 50-159 [facility] ([facility]) Triglyceride [Mass/volume] in Serum or Plasma 123 mg/dL 30-150 [facility] ([facility]) Cholesterol in HDL [Mass/volume] in Serum or Plasma 33 mg/dL 35-60 [facility] ([facility]) ID Date Data Source [id number] 11/26/2019 08:44:00 AM EST [facility] ([facility]) Name Value Range Interpretation Code Description Data Indira rce(s) Supporting Document(s) Glucose [Mass/volume] in Serum or Plasma 107 mg/dL 74-99 [facility] ([facility]) 100-125 mg/dL PRE-DIABETES/FASTING >126 mg/dL DIABETES/FASTING Urea nitrogen [Mass/volume] in Serum or Plasma 13 mg/dL 7-18 [facility] ([facility]) Creatinine 1.1 mg/dL 0.6-1.3 [facility] Chloride [Moles/volume] in Serum or Plasma 100 meq/L 98-107 [facility] ([facility]) Potassium [Moles/volume] in Serum or Plasma 4.5 meq/L 3.5-5.1 [facility] ([facility]) Sodium [Moles/volume] in Serum or Plasma 138 meq/L 136-145 [facility] ([facility]) Carbon dioxide, total [Moles/volume] in Serum or Plasma 25 meq/L 21 -32 [facility] ([facility]) Calcium [Mass/volume] in Serum or Plasma 9.2 mg/dL 8.5-10.1 [facility] ([facility]) Glomerular filtration rate/1.73 sq M pre dicted among non-blacks [Volume Rate/Area] in Serum or Plasma by Creatinine-based formula (MDRD) >= 60 mL/min [facility] ([facility]) Glomerular filtration rate/1.73 sq M pre dicted among blacks [Volume Rate/Area] in Serum or Plasma by Creatinine-based formula (MDRD) >= 60 mL/min [facility] ([facility]) <content>CHRONIC KIDNEY DISEASE STAGING PER NKF</content>
<content></content>
<content>STAGE I & II GFR >= 60 NORMAL TO MILDLY DECREASED</content>
<content>STAGE III GFR 30-59 MODERATELY DECREASED</content>
<content>STAGE IV GFR 15-29 SEVERELY DECREASED</content>
<content>STAGE V GFR <15 VERY LITTLE GFR LEFT</content>
<content>ESRD GFR <15 ON CLINICAL SCIENCE LIAISON</content>
<content></content> ID Date Data Source [id number] 11/26/2019 08:44:00 AM EST [facility] ([facility]) Name Value Range Interpretation Code Description Data Indira rce(s) Supporting Document(s) Erythrocytes [#/volume] in Blood by Automated count 5.42 x10*6/UL 4.2 0-6.30 [facility] ([facility]) Leukocytes [#/volume] in Blood by Automated count 6.6 x10*3/UL 4.1-10 .9 [facility] ([facility]) Hemoglobin [Mass/volume] in Blood 15.6 g/dL 12.0-18.0 [facility] ([facility]) Hematocrit [Volume Fraction] of Blood by Automated count 46.1 % 3 7.0-51.0 [facility] ([facility]) MCHC 34.0 g/dL 31.0-38.0 [facility] MCV 84.9 fL 80.0-97.0 [facility] MCH 28.8 pg 26.0-32.0 [facility]) Erythrocyte distribution width [Ratio] by Automated count 12.4 % 11.6-13.7 [facility] Platelets [#/volume] in Blood by Automated count 227 x10*3/UL 140-440 [facility] ([facility]) Lymph % 31.4 % 10.0-58.5 [facility]) Mid % 8.1 % 1.7-9.3 [facility]) MPV 8.0 FL 7.8-11.0 [facility] Neut % 60.5 % 37.0-92.0 [facility] Mid # 0.6 x10*3/UL 0.1-0.6 [facility] ([facility]) Lymph # 2.0 x10*3/UL 0.6-4.1 [facility] ([facility]) Neut # 4.0 x10*3/UL 2.0-7.8 [facility] ([facility]) Procedure Vital Signs ID Date Data Source UNK Name Value Range Interpretation Code Description Data Source(s) Body mass index (BMI) [Ratio] 48.4 kg/m2 48.4 k g/m2 [facility] ([facility]) Body weight 335.00 [lb_av] 335.00 [lb_av] [facility] T ([facility]) Body height 69.75 [in_i] 69.75 [in_i] [facility] ([facility]) 5'9.75" Heart rate 80 /min 80 /min [facility] ([facility]) Diastolic blood pressure 76 mm[Hg] 76 mm[Hg] [facility] ([facility]) RT Arm Systolic blood pressure 122 mm[Hg] 122 mm[Hg] M [facility]) RT Arm Body mass index (BMI) [Ratio] 46.4 kg/m2 46.4 k g/m2 [facility] ([facility]) Body weight 321.00 [lb_av] 321.00 [lb_av] [facility] Body height 69.75 [in_i] 69.75 [in_i] [facility] ([facility]) 5'9.75" Diastolic blood pressure 84 mm[Hg] 84 mm[Hg] [facility] ([facility]) Systolic blood pressure 130 mm[Hg] 130 mm[Hg] M [facility]
[2020-12-12] MEDS ORDERED: ONDA4TAB6 PO (12:01)
== END 2020-12-12 12:15 | disposition home or self-care (01) ==
LOC: M ED 10:45
DX: U07.1 COVID-19 (principal); Z88.4 Allergy status to anesthetic agent

== ENCOUNTER → 2021-06-16 | Outpatient (REF) | payer OTHER | LOC: M SMT 13:11 | PROVIDERS: ATTEND Urology | DX: Z30.8 Encounter for other contraceptive management (principal) ==